=== PATIENT | male | born 1950 | race Caucasian/White ===

== ENCOUNTER 2017-03-29 13:47 | Emergency (ER) | payer BC, SELFPAY ==
[2017-03-29] MEDS ORDERED: HYDROcodone/Acetaminophen 5/325 mg Tablet ONE (14:29)
--- NOTE | 2017-03-29 15:27 | RAD ---
LEFT FOREARM TWO VIEWS: History: 66-year-old male with left forearm pain after pulling himself onto a tractor and heard a pop. FINDINGS/IMPRESSION: No fracture, dislocation, or other significant acute osseous abnormality of the forearm. Mild degene rative changes of the wrist. The elbow joint and wrist joints are not completely evaluated on this t wo view examination of the forearm. POS: [facility]
--- NOTE | 2017-03-29 15:28 | RAD ---
LEFT ELBOW FOUR VIEWS: HISTORY: A 66-year-old male with left elbow pain after he was pulling himself up onto a tractor and heard a p op. FINDINGS: Four views of the left elbow demonstrate mild degenerative changes of the humeral ulnar joint, media lly. No acute fracture or dislocation. No abnormal joint effusion. IMPRESSION: Unremarkable left elbow. Mild degenerative changes. POS: [facility]
== END 2017-03-29 15:23 | disposition home or self-care (01) ==
LOC: MADERS 13:47
DX: S46.812A Strain of other muscles, fascia and tendons at shoulder and upper arm level, left arm, initial encounter (principal); I10 Essential (primary) hypertension; X50.9XXA Other and unspecified overexertion or strenuous movements or postures, initial encounter

== ENCOUNTER 2018-07-13 07:14 | Emergency (ER) | payer MEDICARE ==
[2018-07-13] MEDS ORDERED: Sodium Chloride 0.9% 1,000 ML BAG ONE (07:15)
[2018-07-13] MEDS ORDERED: Sodium Chloride 0.9% 100 ML BAG ONE (07:15)
[2018-07-13] MEDS ORDERED: Aspirin Chewable 81 MG TAB ONE (07:44)
[2018-07-13] MEDS ORDERED: Nitroglycerin 0.4 MG TAB 1 EACH ONE (07:44)
[2018-07-13 07:54] LABS: #Eosinphils 0.1 thou/uL (0.0-0.7); #Lymphocytes 0.8 thou/uL (1.20-3.40); #Monocytes 0.1 thou/uL (0.11-0.59); #Neutrophils 5.1 thou/uL (1.40-6.50); %Basophils 0.6 % (0.0-1.0); %Eosinophils 1.7 % (0.0-10.0); %Lymphocytes 13.2 % (21.0-51.0); %Neutrophils 82.6 % (42.0-75.0); Mean Corpuscular HGB CONC 30.6 g/dL (32.0-36.0); Mean Corpuscular Hemoglobin 25.8 pg (27.0-31.0); Mean Corpuscular Volume 84.4 fL (78.0-98.0); Mean Platelet Volume 6.1 fL (7.4-10.4); Platelet Count 298 thou/uL (130-400); RBC Distribution Width 14.3 % (11.5-14.5); Red Blood Cell (RBC) Count 3.89 mill/uL (4.70-6.10); White Blood Cell (WBC) Count 6.1 thou/uL (4.8-10.8)
[2018-07-13] MEDS ORDERED: Ondansetron PF 4 MG/2 ML Vial ONE (07:55)
[2018-07-13] MEDS ORDERED: Morphine 4 MG/ML VIAL ONE ×2 (07:55→11:14)
[2018-07-13 08:09] LABS: ALT (SGPT) 17 U/L (8-55); AST (SGOT) 19 U/L (5-34); Albumin 3.8 g/dL (3.4-4.8); Alkaline Phosphatase 65 U/L (40-150); Anion Gap 13 mmol/L (10-20); BUN (Urea Nitrogen) 19 mg/dL (8.4-25.7); Bilirubin, Total 0.7 mg/dL (0.2-1.2); Calc. Creatinine Clearance 0 mL/min (70-130); Calcium 8.6 mg/dL (7.8-10.44); Carbon Dioxide 25 mmol/L (23-31); Chloride 106 mmol/L (98-107); Estimated GFR-MDRD 73; Globulin 2.3 g/dL (2.4-3.5); Glucose 112 mg/dL (80-115); Lipase 24 U/L (8-78); Potassium 4.5 mmol/L (3.5-5.1); Protein, Total 6.1 g/dL (5.8-8.1); Sodium 139 mmol/L (136-145)
--- NOTE | 2018-07-13 08:58 | RAD ---
RADIOGRAPH CHEST 1 VIEW: Date: 07-13-18 Time: 8:07 a.m. HISTORY: 67-year-old male with chest pain. COMPARISON: 09-13-13 FINDINGS: Lungs are hypoinflated on the current study, making this a limited evaluation. There is a new finding of patchy airspace opacities in the retrocardiac, medial portion of the left lower lobe. No cardiome lubna or pulmonary edema. No other airspace densities elsewhere. No pneumothorax. IMPRESSION: 1. Mild pulmonary densities in the medial aspect of the left lower lobe, nonspecific. This could repr esent atelectasis or early pneumonia. 2. Recommend short internal follow up with PA and lateral views. JN POS: [facility]
[2018-07-13] MEDS ORDERED: Piperacillin/Tazobactam 3.375 GM VIAL ONE (09:36)
--- NOTE | 2018-07-13 09:51 | CT ---
CT OF ABDOMEN AND PELVIS PERFORMED WITH CONTRAST ENHANCEMENT: Date: 07/13/18 HISTORY: Abdominal pain, more left-sided. FINDINGS: The lung bases show subsegmental atelectasis. There is a partially visualized fluid density which is just to the right of the left atrium. Given its fluid density, it is probably not of significance. The liver, spleen, and pancreas regions are unremarkable. Gallbladder is distended. Right and left adrenal glands, and right and left kidneys are normal in size. No significant periaort ic adenopathy. The patient has undergone gastric bypass type procedure. There is free air within the abdomen. There appears to be more this area near the stomach and I suspect the perforation is related to the stomach . I do not see any definite diverticular disease that would explain the perforation. There are some m inimal diverticulosis changes of the colon. There is some minimal free fluid within the pelvis. No pe lvic lymphadenopathy or mass. Appendix region is unremarkable. IMPRESSION: Free air within the abdomen. I believe the most likely source is probably in the region of the stomac h. The patient has undergone previous gastric bypass procedure. These findings were discussed with Dr. Layne. CODE CR. POS: [facility]
[2018-07-13] MEDS ORDERED: Iopamidol 370 76% 100 ML VIAL ONE (10:56)
== END 2018-07-13 11:28 | disposition short-term general hospital (02) ==
LOC: MADERS 07:14
DX: K63.1 Perforation of intestine (nontraumatic) (principal); R07.89 Other chest pain; I48.91 Unspecified atrial fibrillation; E78.5 Hyperlipidemia, unspecified; I10 Essential (primary) hypertension; Z79.899 Other long term (current) drug therapy; Z79.82 Long term (current) use of aspirin
CPT/HCPCS: 36415; 71045; 74177; 80053; 83605; 83690; 84484; 85025; 87040; 87149; 93005; 96361; 96365; 96375; 96376; J2270; J2405; J2543; J7050; Q9967

== ENCOUNTER 2018-08-01 00:29 | Emergency (ER) | payer MEDICARE ==
[2018-08-01] MEDS ORDERED: Diazepam 5 MG TAB ONE (00:48)
[2018-08-01] MEDS ORDERED: HYDROcodone/Acetaminophen 10/325 mg Tablet ONE (00:48)
[2018-08-01] MEDS ORDERED: Dexamethasone 4 MG TAB ONE (00:48)
[2018-08-01] MEDS ORDERED: Acetaminophen 325 MG TAB ONE (00:48)
== END 2018-08-01 01:00 | disposition home or self-care (01) ==
LOC: MADERS 00:29
DX: S16.1XXA Strain of muscle, fascia and tendon at neck level, initial encounter (principal); I10 Essential (primary) hypertension; E78.5 Hyperlipidemia, unspecified; I48.91 Unspecified atrial fibrillation; Z79.899 Other long term (current) drug therapy; Z79.891 Long term (current) use of opiate analgesic; X50.1XXA Overexertion from prolonged static or awkward postures, initial encounter
CPT/HCPCS: 99283; J8540

== ENCOUNTER 2020-08-14 18:17 | Emergency (ER) | payer MEDICARE, BC ==
[~2020-08-14 18:17] MED LIST: Sodium Chloride 0.9% 1,000 ML BAG ONE
[2020-08-14] MEDS ORDERED: Ondansetron PF 4 MG/2 ML Vial ONE (19:00)
[2020-08-14 19:16] LABS: #Basophils 0.1 thou/uL (0.0-0.2); #Eosinphils 0.2 thou/uL (0.0-0.7); #Lymphocytes 1.3 thou/uL (1.20-3.40); #Neutrophils 9.4 thou/uL (1.40-6.50); %Basophils 0.8 % (0.0-1.0); %Eosinophils 1.5 % (0.0-10.0); %Lymphocytes 11.2 % (21.0-51.0); %Monocytes 8.5 % (0.0-10.0); Hemoglobin 12.8 g/dL (14.0-18.0); Mean Corpuscular HGB CONC 33.6 g/dL (32.0-36.0); Mean Corpuscular Volume 98.1 fL (78.0-98.0); Mean Platelet Volume 6.5 fL (7.4-10.4); Platelet Count 249 thou/uL (130-400); RBC Distribution Width 11.6 % (11.5-14.5); Red Blood Cell (RBC) Count 3.89 mill/uL (4.70-6.10)
[2020-08-14 19:27] LABS: ALT (SGPT) 17 U/L (8-55); AST (SGOT) 20 U/L (5-34); Albumin 3.8 g/dL (3.4-4.8); Alkaline Phosphatase 63 U/L (40-110); Anion Gap 14 mmol/L (10-20); BUN (Urea Nitrogen) 21 mg/dL (8.4-25.7); Bilirubin, Total 1.6 mg/dL (0.2-1.2); CK (CPK) 87 U/L (30-200); Calc. Creatinine Clearance 0 mL/min (70-130); Calcium 8.8 mg/dL (7.8-10.44); Carbon Dioxide 25 mmol/L (23-31); Chloride 104 mmol/L (98-107); Globulin 2.6 g/dL (2.4-3.5); Glucose 141 mg/dL (80-115); Potassium 4.1 mmol/L (3.5-5.1); Protein, Total 6.4 g/dL (5.8-8.1); Sodium 139 mmol/L (136-145)
[2020-08-14 19:28] LABS: CKMB 1.5 ng/mL (0-6.6)
[2020-08-14] MEDS ORDERED: Promethazine HCl 6.25 MG/5 ML Syrup ONE (19:49)
[2020-08-14] MEDS ORDERED: Metoclopramide HCl 10 MG/2 ML VIAL ONE (19:49)
[2020-08-14] MEDS ORDERED: Promethazine HCl 25 MG/ML VIAL ONE (19:50)
[2020-08-14] MEDS ORDERED: Pantoprazole 40 MG VIAL ONE (19:50)
== END 2020-08-14 22:20 | disposition home or self-care (01) ==
LOC: MADERS 18:17
DX: A05.9 Bacterial foodborne intoxication, unspecified (principal); E78.5 Hyperlipidemia, unspecified; E78.00 Pure hypercholesterolemia, unspecified; I10 Essential (primary) hypertension; Z79.01 Long term (current) use of anticoagulants; Z79.899 Other long term (current) drug therapy
CPT/HCPCS: 36415; 71045; 80053; 82550; 82553; 84484; 85025; 93005; 96365; 96367; 96368; 96375; C9113; J2405; J2550; J2765; J7050

== ENCOUNTER 2023-06-11 09:23 | Emergency (ER) | payer MEDICARE, BC ==
[2023-06-11] MEDS ORDERED: Ipratropium/Albuterol 3 ML NEB ONE ×2 (09:56→11:07)
[2023-06-11] MEDS ORDERED: predniSONE 10 MG TAB ONE (10:01)
[2023-06-11] MEDS ORDERED: predniSONE 20 MG TAB ONE ×2 (10:01→10:02)
== END 2023-06-11 10:37 | disposition home or self-care (01) ==
LOC: MADERS 09:23
DX: J10.1 Influenza due to other identified influenza virus with other respiratory manifestations (principal); E78.00 Pure hypercholesterolemia, unspecified; I10 Essential (primary) hypertension; Z79.899 Other long term (current) drug therapy
CPT/HCPCS: 71045; 87804; J7512; J7620

== ENCOUNTER 2023-12-14 18:16 | Emergency (ER) | payer MEDICARE, BC ==
[2023-12-14 19:24] LABS: #Basophils 0.1 thou/uL (0.0-0.2); #Eosinphils 0.1 thou/uL (0.0-0.7); #Lymphocytes 1.6 thou/uL (1.20-3.40); #Monocytes 0.7 thou/uL (0.11-0.59); #Neutrophils 4.9 thou/uL (1.40-6.50); %Basophils 1.3 % (0.0-1.0); %Eosinophils 1.7 % (0.0-10.0); %Lymphocytes 21.5 % (21.0-51.0); %Monocytes 9.7 % (0.0-10.0); %Neutrophils 65.8 % (42.0-75.0); Hematocrit 43.1 % (42.0-52.0); Hemoglobin 13.6 g/dL (14.0-18.0); Mean Corpuscular HGB CONC 31.5 g/dL (32.0-36.0); Mean Corpuscular Hemoglobin 31.8 pg (27.0-31.0); Mean Platelet Volume 6.3 fL (7.4-10.4); Platelet Count 229 10x3/uL (130-400); RBC Distribution Width 11.9 % (11.5-14.5); Red Blood Cell (RBC) Count 4.27 mill/uL (4.70-6.10); White Blood Cell (WBC) Count 7.4 10x3/uL (4.8-10.8)
[2023-12-14 19:33] LABS: Prothrombin Time 13.2 sec (12.0-14.7)
[2023-12-14 19:34] LABS: PTT 25.4 sec (22.9-36.1)
[2023-12-14 19:40] LABS: ALT (SGPT) 11 U/L (8-55); AST (SGOT) 16 U/L (5-34); Albumin 3.6 g/dL (3.4-4.8); Alkaline Phosphatase 63 U/L (40-110); Anion Gap 14 mmol/L (10-20); BUN (Urea Nitrogen) 23 mg/dL (8.4-25.7); Bilirubin, Total 0.7 mg/dL (0.2-1.2); Calc. Creatinine Clearance 0 mL/min (70-130); Calcium 8.8 mg/dL (7.8-10.44); Carbon Dioxide 23 mmol/L (23-31); Chloride 108 mmol/L (98-107); Estimated GFR 69; Globulin 2.7 g/dL (2.4-3.5); Glucose 108 mg/dL (80-115); Magnesium 2.4 mg/dL (1.6-2.6); Potassium 4.3 mmol/L (3.5-5.1); Protein, Total 6.3 g/dL (5.8-8.1); Sodium 141 mmol/L (136-145)
[2023-12-14] MEDS ORDERED: Pantoprazole 40 MG VIAL ONE (20:40)
== END 2023-12-14 22:07 | disposition short-term general hospital (02) ==
LOC: MADERS 18:16
DX: K92.2 Gastrointestinal hemorrhage, unspecified (principal); I10 Essential (primary) hypertension; E78.00 Pure hypercholesterolemia, unspecified; Z79.82 Long term (current) use of aspirin; Z79.899 Other long term (current) drug therapy
CPT/HCPCS: 80053; 82274; 83735; 85025; 85610; 85730; 86850; 86900; 86901; 96374; C9113

== ENCOUNTER 2025-02-25 09:02 | Emergency (ER) | payer MEDICARE, BC | END 2025-02-25 10:22 | disposition home or self-care (01) | LOC: MADERS 09:02 | DX: S40.012A Contusion of left shoulder, initial encounter (principal); I10 Essential (primary) hypertension; I48.91 Unspecified atrial fibrillation; W01.0XXA Fall on same level from slipping, tripping and stumbling without subsequent striking against object, initial encounter; Y93.89 Activity, other specified | CPT/HCPCS: 99283 ==